=== PATIENT | female | born 1990 ===

== ENCOUNTER 2021-11-12 16:22 | Outpatient (CLI) | payer OTHER | END 2021-11-12 17:30 | disposition home or self-care (01) | LOC: PRENATAL 16:22 | PROVIDERS: ATTEND Obstetrics & Gynecology Maternal & Fetal Medicine | DX: O35.0XX0 Maternal care for (suspected) central nervous system malformation in fetus, not applicable or unspecified (principal); O35.3XX0 Maternal care for (suspected) damage to fetus from viral disease in mother, not applicable or unspecified; O99.280 Endocrine, nutritional and metabolic diseases complicating pregnancy, unspecified trimester; O99.891 Other specified diseases and conditions complicating pregnancy; Z3A.21 21 weeks gestation of pregnancy; Z88.0 Allergy status to penicillin; Z91.010 Allergy to peanuts ==